=== PATIENT | female | born 1955 | race Caucasian/White ===

== ENCOUNTER → 2021-01-26 | Outpatient (CLI) | payer MEDICARE ==
[2017-02-10 11:00] VITALS: BP 94/54
[~2021-01-26] MED LIST: ALBU1.25 NEB; ASPI-482 PO; ASPI325T8 PO; BUDE10.2 IH; CHOL100013 PO; CLOP75TA PO; DESL5TAB PO; DEXL60CA2 PO; DOXY100T PO; IPRA0.2S5 NEB; LISI10TA16 PO; LOVA20TA2 PO; METO-239 PO; METO25TA4 PO; MOME17SP NS; NITR0.4T24 SL; OLME20TA17 PO; PANT40TA77 PO; PERFLUTREN PROTEIN-A MICROSPHR 0.22 MG/ML 3 ML VIAL. IV ONE; PROVENTIL HFA6.7 GM IH; REGADENOSON 0.4 MG/5 ML DISP.SYRIN. IV ONE; SIMV40TA18 PO; ZOLP10TA4 PO
[2021-01-26 08:59] LABS: CHOLESTEROL/HDL RATIO 3.8
--- NOTE | 2021-01-27 09:32 | RAD ---
MR#: [id number] Date of Study: 01/26/2021 Ordering Physician: MARCELO PETERSON, Referring Physician: MARCELO PETERSON, Tech: Abel Mena MBA, RDMS, RVT, RDCS, RTR APPROVED REPORT Patient Location: OUT-PATIENT Indications Rest Pain:Bilaterally VELOCITY AND DOPPLER WAVEFORM ANALYSIS RIGHT cm/secWaveformSeverity LEFT cm/secWaveform Severity dCFA 173.0TriphasicdCFA 128.0Triphasic Prof Fem Art. 78.0TriphasicProf Fem Art. 58.0Triphasic Fem Art Prox. 134.0TriphasicFem Art Prox. 136.0Triphasic Fem Art Mid. 124.0TriphasicFem Art Mid. 91.0Triphasic Fem Art Dist. 86.0TriphasicFem Art Dist. 75.0Triphasic Pop Art(Fossa) 53.0TriphasicPop Art(AK) 62.0Triphasic P[place]IDER Prox. 82.0TriphasicPTA Prox. 98.0Triphasic [place] Dist. 114.0TriphasicPTA Dist. 102.0Triphasic Per Art Mid. 43.0BiphasicPer Art Mid. 49.0Triphasic ERIN Prox. 63.0TriphasicATA Prox. 55.0Triphasic DPA 45TriphasicDPA 84Monophasic Findings Grayscale images demonstrate no significant atherosclerotic plaque. Spectral waveforms are mostly triphasic and biphasic. There is three-vessel runoff below the knee. No critical obstruction noted Critical Notification Critical Value: No <Conclusion> 1. No significant lower extremity arterial disease with three-vessel runoff Signed by : Bong Peter, Electronically Approved : 01/27/2021 09:31:41
--- NOTE | 2021-01-27 09:41 | CARD ---
MR#: [id number] Date of Study: 01/26/2021 Ordering Physician: MARCELO PETERSON, Referring Physician: MARCELO PETERSON Tech: Noemi Armstrong [facility] APPROVED REPORT EXAM: Two-dimensional and M-mode echocardiogram with Doppler and color Doppler. Other Information Quality : Technically LimitedHR: 71bpm Rhythm : NSR INDICATION Dyspnea Chest Pain RISK FACTORS Hypertension Obesity Smoking 2D DIMENSIONS RVDd2.9 (2.9-3.5cm)Left Atrium(2D)2.5 (1.6-4.0cm) IVSd1.0 (0.7-1.1cm)Aortic Root(2D)3.1 (2.0-3.7cm) LVDd3.5 (3.9-5.9cm)LVOT Diameter2.0 (1.8-2.4cm) PWd1.0 (0.7-1.1cm)LVDs2.3 (2.5-4.0cm) FS (%) 34.3 %SV32.6 ml LVEF(%)64.4 (>50%) Aortic Valve AoV Peak Thaddeus.128.8cm/sAoV VTI26.4cm AO Peak GR.6.6mmHgLVOT Peak Thaddeus.116.4cm/s AO Mean GR.3mmHgAVA (VMAX)2.90cm2 Mitral Valve MV E Ykehfpwe40.4cm/sMV DECEL LCVA030sr MV A Bgixxobx96.5cm/sE/A Ratio1.0 Pulmonary Valve PV Peak Gzfvpjzz69.0cm/s LEFT VENTRICLE The left ventricle is normal size. There is normal left ventricular wall thickness. The left ventricu lar systolic function is normal and the ejection fraction is within normal range. Estimated ejection fraction 60-65%. There is normal LV segmental wall motion. The left ventricular diastolic function an d filling is normal for age. RIGHT VENTRICLE The right ventricle is normal size. There is normal right ventricular wall thickness. The right ventr icular systolic function is normal. ATRIA The left atrium size is normal. The right atrium size is normal. The interatrial septum is intact wit h no evidence for an atrial septal defect or patent foramen ovale as noted on 2-D or Doppler imaging. AORTIC VALVE The aortic valve is normal in structure and function. Doppler and Color Flow revealed no significant aortic regurgitation. There is no significant aortic valvular stenosis. MITRAL VALVE The mitral valve is normal in structure and function. There is no evidence of mitral valve prolapse. There is no mitral valve stenosis. Doppler and Color Flow revealed no mitral valve regurgitation note d. TRICUSPID VALVE The tricuspid valve is normal in structure and function. Doppler and Color Flow revealed no tricuspid valve regurgitation noted. There is no tricuspid valve stenosis. PULMONIC VALVE Doppler and Color Flow revealed no pulmonic valvular regurgitation. There is no pulmonic valvular shoshana nosis. GREAT VESSELS The aortic root is normal in size. The ascending aorta is normal in size. The IVC is normal in size a nd collapses >50% with inspiration. PERICARDIAL EFFUSION There is no evidence of significant pericardial effusion. Critical Notification Critical Value: No <Conclusion> The left ventricular systolic function is normal and the ejection fraction is within normal range. E stimated ejection fraction 60-65%. There is normal LV segmental wall motion. Signed by : Bong Peter, Electronically Approved : 01/27/2021 09:41:18
--- NOTE | 2021-01-27 10:06 | RAD ---
MR#: [id number] Date of Study: 01/26/2021 Ordering Physician: MARCELO PETERSON, Referring Physician: GARCÍA BUSH Tech: CINTHIA Montero ARRT (R) (N) APPROVED REPORT Test Type: Pharmacological Stress Nurse/Tech: Shalini Sanches RN Test Indications: CAD Cardiac History: HTN, Cardiac stents= 2008 x1 & 2010 x2, See EMR. Medications: See EMR. Medical History: Smoker, See EMR. Resting ECG: SR Resting Heart Rate: 53 bpm Resting Blood Pressure: 128/67mmHg Pretest Chest Pain: No chest pain Nurse/Tech Notes Lungs CTA, Heart tones regular. Consent: The procedure was explained to the patient in lay terms. Informed consent was witnessed. Rudy eout was entered into Inspirato. History and Stress Test performed by CINTHIA Montero ARRT (R) (N) Pharm. Details Pharmacologic stress testing was performed using 0.4mg per 5ml of regadenoson given intravenously ove r 7-10 seconds. Stress Symptoms Dyspnea POST EXERCISE Reason for Termination: Infusion complete Max HR: 99 bpm Max Blood Pressure: 133/66mmHg Blood Pressure response to exercise: Normal blood pressure response during stress. Heart Rate response to exercise: WNL Chest Pain: No. Arrhythmia: No. ST Change: No. INTERPRETATION Stress EKG Conclusion: No evidence of stress induced EKG changes. Imaging Protocol IMAGE PROTOCOL: Rest Tc-99m/stress Tc-99m 1 day Rest: Stress: Viability: Radiopharm.Tc99m MfgznytshTo24a Sestamibi Dose10.2mCi 31mCi Img Date 01/26/2021 01/26/2021 Inj-Img [id number]. 60min. Rest Admin Site:IV - Right HandAdministrator:CINTHIA Montero ARRT (R)(N) Stress Admin Site: IV - Right HandAdministrator: CINTHIA Montero ARRT (Dereck)(N) STRESS DATA End Diast. Vol.48.0mlAv. Heart Rate97.0bpm End Syst. Vol.6.0mlCO Index BSA0.0L/min Myocardial Mass87.0gEject. Zleulija32.0% Stress Rates Pk. Fill Rate5.13EDV/secLVtime Pk. Fill 173.93msec Pk. Empty Rate6.44ESV/secLVtime Pk. Eject97.71msec 1/ Pk. Fill0.75EDV/sec Stress Scores Regional WT3.00Summed WT15.00 Regional WM0.00Summed WM0.00 LV Perfusion There is a small to moderate sized basal to mid lateral fully reversible defect suggestive of mild is chemia in the circumflex territory. Wall Motion Grossly normal LV systolic function with ejection fraction above 60% LV Perf. Quant 17 Seg. SSS10.00 17 Seg. SRS0.00 17 Seg. SDS10.00 Stress Defect Extent (% LAD)0.00Rest Defect Extent (% LAD)0.00Rev. Defect Extent (% LAD)0.00 Stress Defect Extent (% LCX) 81.30Rest Defect Extent (% LCX)0.00Rev. Defect Extent (% LCX)81.30 Stress Defect Extent (% RCA)0.00Rest Defect Extent (% RCA)0.00Rev. Defect Extent (% RCA)0.00 Stress Defect Extent (% ZULEMA)17.60Rest Defect Extent (% ZULEMA)0.00Rev. Defect Extent (% ZULEMA)17.60 Other Information Quality:Average Risk Assessment: Moderate Risk Conclusion 1. No evidence of stress-induced EKG changes 2. Small to moderate size reversible lateral perfusion defect suggestive of mild ischemia 3. Grossly normal EF of greater than 60% 4. Moderate risk for future cardiovascular Signed by : Bong Peter, Electronically Approved : 01/27/2021 10:06:33
== END ==
LOC: NM 09:16
PROVIDERS: ATTEND Internal Medicine Cardiovascular Disease
DX: I25.10 Atherosclerotic heart disease of native coronary artery without angina pectoris (principal)
CPT/HCPCS: 36415; 78452; 80061; 93017; 93306; 93925; A9500; J2785; Q9956

== ENCOUNTER 2021-02-21 08:21 | Outpatient (CLI) | payer MEDICARE ==
[2021-02-21] VITALS (13 sets, daily range): BP systolic 106–141; BP diastolic 56–85
[~2021-02-21] VITALS: Ht 162.6 cm; Wt 98.2 kg
[~2021-02-21 08:21] MED LIST changes: -MOME17SP NS; +MOME17SP5 NS; -PERFLUTREN PROTEIN-A MICROSPHR 0.22 MG/ML 3 ML VIAL. IV ONE; -REGADENOSON 0.4 MG/5 ML DISP.SYRIN. IV ONE
[2021-02-21 08:44] LABS: HEMATOCRIT 41.3 % (36.0-47.0); HEMOGLOBIN 13.8 g/dL (12.0-15.5); RED BLOOD COUNT 4.53 x10^6/uL (3.50-5.40); RED CELL DISTRIBUTION WIDTH 14.9 % (11.5-14.5); WHITE BLOOD COUNT 10.7 x10^3/uL (4.0-11.0)
[2021-02-21 08:53] LABS: CALCIUM 9.3 mg/dL (8.5-10.1); CREATININE 1.2 mg/dL (0.6-1.0); GFR 45.1; POTASSIUM 4.7 mmol/L (3.5-5.1)
[2021-02-21] MEDS ORDERED: LOSA-73 PO (09:15)
[2021-02-21] MEDS ORDERED: DIPH25CA58 PO (09:15)
[2021-02-21] MEDS ORDERED: METO25TA4 PO (09:15)
[2021-02-21] MEDS ORDERED: CRESTOR5 MG PO (09:15)
[2021-02-21] MEDS ORDERED: CALC500T30 PO (09:15)
[2021-02-21] MEDS ORDERED: IODIXANOL 320 MG/ML 100 ML VIAL. ONE ×2 (10:18→11:16)
[2021-02-21] MEDS ORDERED: MIDAZOLAM HCL/PF 2 MG/2 ML VIAL. ONE (10:18)
[2021-02-21] MEDS ORDERED: fentaNYL PF VIAL 100 MCG/2 ML VIAL ONE (10:18)
[2021-02-21] MEDS ORDERED: LIDOCAINE 1% Multi-Dose 20 ML VIAL. ONE (10:18)
[2021-02-21] MEDS ORDERED: LIDOCAINE 1% Multi-Dose 20 ML VIAL. INJ ONE (10:30)
[2021-02-21] MEDS ORDERED: MIDAZOLAM HCL/PF 2 MG/2 ML VIAL. IV ONE (10:30)
[2021-02-21] MEDS ORDERED: fentaNYL PF VIAL 100 MCG/2 ML VIAL IV ONE (10:30)
[2021-02-21] MEDS ORDERED: CONTRAST GIVEN. MC PRN (10:30)
[2021-02-21] MEDS ORDERED: IODIXANOL 320 MG/ML 100 ML VIAL. IART ONE (10:30)
[2021-02-21] MEDS ORDERED: BIVALIRUDIN 250 MG VIAL. IV ONE ×2 (11:16→11:30)
[2021-02-21] MEDS ORDERED: NITROGLYCERIN 200 MCG/2 ML SYRINGE FOR CATH/VASC LAB. ONE (11:30)
[2021-02-21] MEDS ORDERED: NITROGLYCERIN 200 MCG/2 ML SYRINGE FOR CATH/VASC LAB. IART ONE (11:45)
[2021-02-21] MEDS ORDERED: ASPIRIN 325 MG TABLET PO ONE (12:15)
[2021-02-21] MEDS ORDERED: CLOPIDOGREL BISULFATE 75 MG TABLET PO ONE (12:15)
--- NOTE | 2021-02-21 12:27 | PDOC ---
MODERATE SEDATION ASSESSMENT RISKS/ALTERNATIVES Risks/Alternatives Risks and alternatives of this type of sedation and procedure discussed with: RISK/ALTERNATIVES: Patient H & P ON CHART H & P H & P on chart and reviewed for co-morbid conditions and appropriate labs. H&P ON CHART: Yes STATUS PREG STATUS ASSESSED: N/A MEDS/ALLERGIES REVIEWED Meds/Allergies Reviewed Medications and Allergies including time and route of recently administered narcotics and sedatives. MEDS/ALLERGIES REVIEWED: Yes ASA RATING ASA RATING: II AIRWAY ASSESSMENT Airway Assessment Airway patency, oral function limitations, presence of caps, crowns, dentures, partials, and ability to extend neck assessed. AIRWAY ASSESSMENT: Yes MALLAMPATI SCORE MALLAMPATI SCORE: II PRE-SEDATION ASSESSMENT PRE-SEDATION ASSESSMENT: Yes MARCELO PETERSON MD Feb 21, 2021 12:27
[2021-02-21] MEDS ORDERED: fentaNYL PF VIAL 100 MCG/2 ML VIAL IV PRN (12:30)
[2021-02-21] MEDS ORDERED: NITROGLYCERIN SUBLINGUAL 0.4 MG BOTTLE OF 25. SL PRN (12:30)
[2021-02-21] MEDS ORDERED: ACETAMINOPHEN 325 MG TABLET. PO PRN (12:30)
--- NOTE | 2021-02-21 13:02 | NUR ---
Venous site oozing. Pressure held. New safeguard reapplied with 40 cc air 1246
[2021-02-21] MEDS ORDERED: LIDOCAINE 2%/EPI 1:100,000 20 ML VIAL. ONE (13:44)
[2021-02-21] MEDS ORDERED: LIDOCAINE 2%/EPI 1:100,000 20 ML VIAL. IJ ONE (14:00)
--- NOTE | 2021-02-21 14:00 | NUR ---
Dr. Peter came to bedside and injected venous site with 18cc Lidocaine with Epi. Pressure dressing placed for 1 hour. No bleeding & site soft.
--- NOTE | 2021-02-21 14:57 | CARD ---
MR#: [id number] Date of Study: 02/21/2021 Ordering Physician: MARCELO PEPPER, Referring Physician: MARCELO PEPPER Tech: RT Gary(R) APPROVED REPORT Technologist: RT Gary(R) Nurse: Mirella Castle RN Procedure(s) performed: 1. Right and left heart catheterization, selective coronary angiography and left ventriculography 2. Successful complex PCI/drug-eluting stents placement to the right coronary artery MODERATE SEDATION TIME: 90 MINUTES FLUORO TIME: 22.4 MIN DOSE: 151 GYCM2 CONTRAST: 195CC VISI INDICATION The indication(s) include : Refractory dyspnea on exertion, coronary artery disease and positive stre ss test. [facility] Clinical Frailty Scale [facility] Clinical Frailty Scale: Mildly Frail Heart Failure Heart Failure: No CASE TECHNIQUE IV conscious sedation was used throughout procedure with appropriate monitoring and was performed in the presence of a registered nurse who was an independent trained observer other than the physician p erforming the procedure. During this case, Fluoroscopy and low osmolar contrast were used for imaging . Specimen(s) Removed: No Estimated Blood loss: 20 cc's. PROCEDURE NARRATIVE After explaining the risk, benefits and alternative options, informed consent was obtained from patie nt. Patient was brought to the cardiac Health Unit Supervisor and her right groin was prepped and draped in the us ual fashion. 20 cc of 2% lidocaine was infiltrated into the skin and subcutaneous tissues for local anesthesia. Under vascular ultrasound guidance, arterial and venous accesses were obtained in the [facility] common femoral artery and vein respectively and 6 and 8 [place] sheaths inserted. A 7.5 [place] Sw an-Myra catheter was then advanced under fluoroscopy guidance and intracardiac pressures, oxygen satu rations and cardiac output by Lencho method measured. Subsequently, 6 [place] JL4 6 [place] JR4 catheter s were used to perform selective angiography of the left and right coronary arteries. 6 [place] pigta il catheter was used to perform left ventriculography. The following findings were noted: FINDINGS A. RIGHT HEART CATHETERIZATION 1. Intracardiac pressures: Mean right atrial pressure 5 mmHg, right ventricular pressure 29/2 mmHg, pulmonary artery pressure 29/5 mmHg with a mean PA pressure of 17 mmHg and mean pulmonary capillary w edge pressure of 9 mmHg. No significant pulmonary hypertension noted. 2. Oxygen saturations: Right atrium 69.9%, pulmonary artery 72.0%, femoral arterial sheath 98.5%. N o evidence of intracardiac shunt. 3. Cardiac output by Lencho method 3.6 L/min. B, LEFT HEART CATHETERIZATION 1. Hemodynamics: Left ventricular end-diastolic pressure 17 mmHg. No pullback gradient across aorti c valve. 2. Left ventriculography: Normal left ventricle systolic function with ejection fraction estimated a t 65 to 70%. No significant mitral regurgitation seen. 3. Coronary angiography: a. The left main coronary artery arose from the left sinus of Valsalva, gave rise to the left anteri or descending and left circumflex arteries and did not show any significant stenosis. b. The left anterior descending artery did not show any significant stenosis. c. The left circumflex artery showed 100% chronic and in-stent occlusion in the mid segment with dis adrian reconstitution of obtuse marginal branch from left to left and right to left collaterals. d. The right coronary artery was a large and dominant vessel arising from the right sinus of Valsalv a that showed 90% stenosis in the midsegment, critical 95% stenosis in the mid to distal segment and 90% in-stent restenosis in the distal segment. INTERVENTION The right coronary artery was engaged with a 6 [place] JR4 guide catheter. The stenoses in the right coronary artery were crossed with a 0.014 in KnowFu prowater guidewire. The lesions were predilated w ith 3.0 x 12 mm Euphora balloon. Initial attempts to advance stent across the mid to distal segment were unsuccessful secondary to calcification. Subsequently, a Guideliner inner catheter was then adv anced and the tip was positioned in the midsegment. With better backup support from this catheter, t he mid to distal segment was successfully treated with 3.5 x 30 mm resolute [place] drug-eluting stent. The mid segment stenosis was then treated with overlapping 3.5 x 26 mm resolute [place] drug-eluting st ent. Follow-up angiography showed resolution of the stenosis to 0% with JUAN-3 distal flow. Patient tolerated procedure well. Hemostasis was achieved using Angio-Seal and manual compression. There w ere no immediate complications. JUAN Flow JUAN Flow (Pre-Intervention): JUAN-2 JUAN Flow (Post-Intervention): JUAN-3 JUAN Flow JUAN Flow (Pre-Intervention): JUAN-2 JUAN Flow (Post-Intervention): JUAN-3 Conclusion 1. Severe two-vessel coronary artery disease. 100% chronic and in-stent occlusion involving the lef t circumflex artery with distal reconstitution from left to left and right to left collaterals. The right coronary artery showed 90% stenosis in the midsegment, 95% stenosis in the mid to distal segmen t and 90% in-stent restenosis in the distal segment. 2. Successful PCI/drug-eluting stents placement the right coronary artery 3. Normal left ventricle systolic function with ejection fraction estimated at 65 to 70% Recommendations 1. Aspirin 325 mg daily for 1 month followed by 81 mg daily 2. Plavix 75 mg daily 3. Cardiovascular risk factor modification Signed by : Marcelo Pepper, Electronically Approved : 02/21/2021 14:56:51
--- NOTE | 2021-02-21 16:02 | NUR ---
Discharge Note: DIMPLE AGUILA Discharge instructions and discharge home medications reviewed with Patient and a copy given. All questions have been answered and understanding verbalized. The following instructions and handouts were given: adult moderate sedation,groin site care,angioseal pamphlet,stent card, smoking cessation Discontinued lines and drains: Peripheral IV intact. Patient discharged to Home or Self Care withFamily Membervia Wheelchair
[2021-02-22] MEDS ORDERED: ASPIRIN ENTERIC COATED 325 MG TABLET.DR. PO SCH (08:00)
[2021-02-22] MEDS ORDERED: CLOPIDOGREL BISULFATE 75 MG TABLET PO SCH (08:00)
== END 2021-02-21 16:04 | disposition home or self-care (01) ==
LOC: CCL 08:21
PROVIDERS: ATTEND Internal Medicine Cardiovascular Disease
DX: I25.10 Atherosclerotic heart disease of native coronary artery without angina pectoris (principal); R06.09 Other forms of dyspnea; R06.02 Shortness of breath; R94.39 Abnormal result of other cardiovascular function study; I10 Essential (primary) hypertension; E78.00 Pure hypercholesterolemia, unspecified; J43.9 Emphysema, unspecified; K21.9 Gastro-esophageal reflux disease without esophagitis; M19.90 Unspecified osteoarthritis, unspecified site; F17.210 Nicotine dependence, cigarettes, uncomplicated; Z79.82 Long term (current) use of aspirin; Z79.899 Other long term (current) drug therapy; Z90.710 Acquired absence of both cervix and uterus; Z98.890 Other specified postprocedural states; Z72.89 Other problems related to lifestyle; Z88.8 Allergy status to other drugs, medicaments and biological substances
CPT/HCPCS: 36415; 76937; 80048; 85027; 93460; 99152; 99153; C1725; C1760; C1769; C1773; C1874; C1887; C1894; C9600; J0583; J1644; J2250; J3010; J3490; Q9967; 92928; G0269